=== PATIENT | male | born 1985 | race Caucasian/White ===

== ENCOUNTER 2016-08-29 18:46 | Emergency (ER) | payer OTHER | END 2016-08-29 18:53 | disposition home or self-care (01) | LOC: ER 18:46 | DX: S05.01XA Injury of conjunctiva and corneal abrasion without foreign body, right eye, initial encounter (principal); F17.200 Nicotine dependence, unspecified, uncomplicated; W25.XXXA Contact with sharp glass, initial encounter | CPT/HCPCS: 99283; A9270-GY ==